=== PATIENT | male | born 1980 | race Asian ===

== ENCOUNTER 2024-01-06 23:52 | Inpatient (IN) | payer BC ==
[~2024-01-06] VITALS: Ht 182.9 cm; Wt 90.8 kg
[2024-01-07 00:26] LABS: BASOPHILS % 0.2 % (0.0-2.0); DIFFERENTIAL COMMENT 0; EOSINOPHILS % 0.8 % (0.0-5.0); HEMATOCRIT. 44.8 % (42.0-52.0); HEMOGLOBIN. 15.8 g/dL (14.0-18.0); LYMPHOCYTES % 8.5 % (20.0-50.0); MEAN CORPUSCULAR HEMOGLOBIN 31.7 pg (28.0-32.0); MEAN CORPUSCULAR HGB CONC 35.2 g/dL (31.0-37.0); MEAN CORPUSCULAR VOLUME 90.2 fL (80.0-94.0); MEAN PLATELET VOLUME 7.7 fl (7.4-10.4); MONOCYTES % 7.5 % (2.0-8.0); PLATELET 162 x1000/uL (130-400); RED BLOOD CELL COUNT 4.97 mill/uL (4.7-6.1); WHITE BLOOD COUNT 13.3 x1000/uL (4.5-11.0)
[2024-01-07 00:39] LABS: CHLORIDE 101 mEq/L (98-107); POTASSIUM 3.9 mEq/L (3.5-5.1); SODIUM 137 mEq/L (136-145)
[2024-01-07 00:40] LABS: CALCIUM 10.1 mg/dL (8.7-10.4); CARBON DIOXIDE 28 mEq/L (21-32)
[2024-01-07 00:45] LABS: CREATININE 1.1 mg/dL (0.6-1.3); GLUCOSE 129 mg/dL (70-105); UREA NITROGEN BLOOD 14 mg/dL (9-23)
[2024-01-07 00:47] LABS: ALANINE AMINOTRANSFERASE 51 IU/L (10-49); ALBUMIN 4.7 g/dL (3.2-4.8); ASPARTATE AMINOTRANSFERASE 31 IU/L (<34); BILIRUBIN DIRECT 0.3 mg/dL (<=3.0)
[2024-01-07 00:48] LABS: BILIRUBIN TOTAL 1.1 mg/dL (0.1-1.0); PROTEIN TOTAL 7.3 g/dL (6.0-8.3)
[2024-01-07] MEDS: SODIUM CHLORIDE 0.9% 1,000 ML IV ONE ×2 (00:53→02:15)
[2024-01-07] MEDS: FAMOTIDINE 20MG TABLET PO ONE (00:53)
[2024-01-07] MEDS: MAGNESIUM/ALUMINUM HYDROXIDE/SIMETHICONE 30ML UDC PO ONE (00:53)
[2024-01-07] MEDS: VISCOUS LIDOCAINE 2% 15 ML UDC PO NR (02:00)
[2024-01-07] MEDS: ACETAMINOPHEN 325MG TABLET PO ONE (02:15)
[2024-01-07 02:24] LABS: CLARITY URINE CLEAR (CLEAR); COLOR URINE YELLOW (YELLOW); GLUCOSE URINE NEGATIVE (NEGATIVE); KETONES URINE TRACE (NEGATIVE); LEUKOCYTE ESTERASE URINE NEGATIVE (NEGATIVE); NITRITE URINE NEGATIVE (NEGATIVE); OCCULT BLOOD URINE NEGATIVE (NEGATIVE); PH URINE >=9.0 (4.5-8.0); PROTEIN URINE NEGATIVE (NEGATIVE); SPECIFIC GRAVITY URINE 1.019 (1.005-1.030); UROBILINOGEN URINE 0.2 E.U./dL (0.2-1.0)
[2024-01-07 02:43] LABS: TROPONIN I HIGH SENSITIVITY 4 ng/L (3.0-53)
[2024-01-07] MEDS: PIPERACILLIN/TAZO 3.375G/50ML 50 ML IV SCH ×2 (06:14→14:13)
[2024-01-07] MEDS: VANCOMYCIN 1.5GM/250ML 250 ML IV SCH (06:44)
[2024-01-07] MEDS: IOHEXOL-300 100 ML BOTTLE ONE (07:21)
[2024-01-07 08:00] VITALS: BP 120/75; PULSE 80; RESP 18; TEMP 36.696
[2024-01-07] MEDS ORDERED: IPRATROPIUM/ALBUTEROL 0.5-3(2.5)MG/3ML NEB HHN PRN (08:00)
[2024-01-07] MEDS ORDERED: ONDANSETRON HCL 4MG/2ML INJ IV PRN (08:15)
[2024-01-07] MEDS ORDERED: NALOXONE HCL 0.4MG/ML VIAL IV PRN (08:30)
[2024-01-07] MEDS: MORPHINE SULFATE 2 MG/ML INJ (NOT FOR IM USE) IV PRN (08:31)
[2024-01-07 10:43] LABS: BASOPHILS % 0.1 % (0.0-2.0); EOSINOPHILS % 0.5 % (0.0-5.0); HEMATOCRIT. 42.8 % (42.0-52.0); LYMPHOCYTES % 12.5 % (20.0-50.0); MEAN CORPUSCULAR HEMOGLOBIN 31.8 pg (28.0-32.0); MEAN CORPUSCULAR HGB CONC 35.1 g/dL (31.0-37.0); MEAN CORPUSCULAR VOLUME 90.8 fL (80.0-94.0); MEAN PLATELET VOLUME 7.6 fl (7.4-10.4); MONOCYTES % 7.5 % (2.0-8.0); NEUTROPHILS % 79.4 % (40.0-76.0); PLATELET 151 x1000/uL (130-400); RED BLOOD CELL COUNT 4.71 mill/uL (4.7-6.1); RED CELL DISTRIBUTION WIDTH 11.9 % (11.6-14.6); WHITE BLOOD COUNT 10.6 x1000/uL (4.5-11.0)
[2024-01-07 10:47] LABS: CHLORIDE 103 mEq/L (98-107); POTASSIUM 3.7 mEq/L (3.5-5.1); SODIUM 139 mEq/L (136-145)
[2024-01-07 10:48] LABS: CALCIUM 8.6 mg/dL (8.7-10.4); CARBON DIOXIDE 30 mEq/L (21-32)
[2024-01-07 10:53] LABS: GLUCOSE 102 mg/dL (70-105); UREA NITROGEN BLOOD 8 mg/dL (9-23)
[2024-01-07 10:55] LABS: ALANINE AMINOTRANSFERASE 40 IU/L (10-49); ALBUMIN 4.3 g/dL (3.2-4.8); ASPARTATE AMINOTRANSFERASE 24 IU/L (<34); BILIRUBIN TOTAL 1.5 mg/dL (0.1-1.0); PROTEIN TOTAL 6.7 g/dL (6.0-8.3)
[2024-01-07 12:00] VITALS: BP 113/75; PULSE 81; RESP 20; TEMP 36.44736; O2SAT 96
[2024-01-07 13:05] VITALS: BP 120/75; PULSE 80; RESP 18; TEMP 36.6696; O2SAT 97
[2024-01-07] MEDS: DEXT 5%/0.45% NACL 1000ML 1,000 ML IV SCH (14:13)
[2024-01-07 14:47] LABS: HEPATITIS A AB IGM NEGATIVE (Negative)
[2024-01-07 14:48] LABS: HEPATITIS B CORE AB IGM NEGATIVE (Negative); HEPATITIS C AB NON REACTIVE (Neg) (Negative)
[2024-01-07 15:33] LABS: HEPATITIS B SURFACE ANTIGEN NEGATIVE (Negative)
[2024-01-07 16:00] VITALS: BP 110/59; PULSE 87; RESP 20; TEMP 37.00296; O2SAT 96
[2024-01-07] MEDS: ACETAMINOPHEN 325MG TABLET PO PRN (16:18)
[2024-01-07] MEDS ORDERED: METR-167 PO (17:57)
[2024-01-07] MEDS ORDERED: LEVO-65 MT (17:57)
[2024-01-07 18:44] VITALS: BP 110/59; PULSE 87; TEMP 98.6; O2SAT 96
== END 2024-01-07 19:00 | disposition home or self-care (01) | DRG 392 ==
LOC: ER 23:52 → 7WST 01-07 05:02 → EDBEDREQ 01-07 05:06 → EDBEDREQTM 01-07 05:06
PROVIDERS: ADMIT Internal Medicine; ATTEND Internal Medicine
DX: K57.32 Diverticulitis of large intestine without perforation or abscess without bleeding (principal); K76.89 Other specified diseases of liver; K76.0 Fatty (change of) liver, not elsewhere classified; R16.2 Hepatomegaly with splenomegaly, not elsewhere classified; K56.41 Fecal impaction; Z79.899 Other long term (current) drug therapy
CPT/HCPCS: 36415; 74177; 76700; 80048; 80053; 80076; 81003; 84484; 85025; 86705; 86709; 87340; 93005; 99285; J2270; J2543; J3370; J7030; Q9967